=== PATIENT | male | born 1975 | race Hispanic/Latino ===

== ENCOUNTER 2017-06-16 11:10 | Outpatient (CLI) | payer BC | END 2017-06-16 11:11 | disposition home or self-care (01) | LOC: BICRAD 11:10 | PROVIDERS: ATTEND Chiropractor | DX: M54.16 Radiculopathy, lumbar region (principal); M43.17 Spondylolisthesis, lumbosacral region | CPT/HCPCS: 72100 ==

== ENCOUNTER 2017-09-27 07:42 | Outpatient (CLI) | payer BC ==
--- NOTE | 2017-09-27 10:17 | MRI ---
MRI LUMBAR SPINE WITHOUT CONTRAST: Multiplanar, multisequential imaging of lumbar spine obtained. INDICATION: Low back pain. Lumbago with sciatica right side. FINDINGS: Lumbar vertebrae maintain normal height and alignment. Disk spaces are preserved. No significant abnormality is seen at T12-L1 or at L1-2. At L2-3, there is an annular fissure with diffuse disk bulge flattening the thecal sac. Mild facet a rthrosis. Mild central canal stenosis. At L3-4, annular fissure with broad-based disk bulge flattening thecal sac. Mild facet arthrosis. P osterior epidural fat. These changes result in mild central canal stenosis. L4-5, annular fissure with broad-based disk bulge flattening the thecal sac. This bulge is slightly asymmetric to the right with right foraminal encroachment and possible contact with the exiting right L4 nerve root. Mild to moderate facet hypertrophy. Posterior epidural fat. Mild central canal deana nosis. At L5-S1, a broad-based disk bulge abuts the thecal sac. There is an asymmetric bulge/protrusion to the right which does extend into the right foramina resulting in a disk-osteophyte complex in the rig ht foramina which appears to displace the exiting right L5 nerve root. There is moderate facet hyper trophy without significant central canal stenosis. IMPRESSION: 1. There are annular fissures with diffuse disk bulges at L2-3, L3-4, and L4-5 as described above. 2. A broad-based bulge which is asymmetric to the right with right foraminal encroachment at L5-S1 a s described above. POS: MARIO
== END 2017-09-27 07:43 | disposition home or self-care (01) ==
LOC: TBSIIMAG 07:42
PROVIDERS: ATTEND Anesthesiology
DX: M54.41 Lumbago with sciatica, right side (principal); Q05.7 Lumbar spina bifida without hydrocephalus; M51.36 Other intervertebral disc degeneration, lumbar region
CPT/HCPCS: 72148